=== PATIENT | female | born 1955 | race Caucasian/White ===

== ENCOUNTER → 2021-11-14 | Emergency (ER) | payer MEDICARE, MEDICAID ==
[~2021-11-14] VITALS: Ht 160 cm; Wt 65.8 kg
[2021-11-14 15:00] VITALS: BP_SYST 135
--- NOTE | 2021-11-14 15:10 | NUR ---
Patient triaged and placed in waiting room. VSS and patient appears in no acute distress at this time. Accompanied by SELF, awaiting available bed, and MD notified of need for MSE.
--- NOTE | 2021-11-14 15:50 | NUR ---
PT STATES SHE FELL ON SUNDAY AND WENT TO AN ER, STATES SHE GOT AN XRAY AND TOLD TO GO TO ORTHOPEDIC DR FOR POSS SURGERY. PT STATES SHE DID NOT GO AND CAME HERE INSTEAD TO GET OUR OPINION.
--- NOTE | 2021-11-14 17:17 | NUR ---
DR MOREJON EVALUATING PT IN TRIAGE ROOM.
== END | disposition home or self-care (01) ==
LOC: SED 14:50
DX: S62.347A Nondisplaced fracture of base of fifth metacarpal bone, left hand, initial encounter for closed fracture (principal); Z88.0 Allergy status to penicillin; Z79.899 Other long term (current) drug therapy; W01.198A Fall on same level from slipping, tripping and stumbling with subsequent striking against other object, initial encounter; Y93.89 Activity, other specified; Y92.89 Other specified places as the place of occurrence of the external cause; Y99.8 Other external cause status
CPT/HCPCS: 99283